=== PATIENT | female | born 1985 | race Caucasian/White ===

== ENCOUNTER → 2018-04-15 | Emergency (ER) | payer OTHER ==
[~2018-04-15] VITALS: Ht 170.1 cm; Wt 61.2 kg
[~2018-04-15] MED LIST: AMOXICILLIN500 MG PO; ATARAX,VISTARIL50 MG PO; ATARAX25 MG PO; ATIVAN1 MG PO; BACTRIM DS 8001 TA1 PO; BIRTH CONTROL1 EAC1; CARBIDOPA/LEVOD1 TA1 PO; CELEXA20 MG PO; CIPROFLOXACIN500 MG PO; DAYPRO600 M1 PO; KEFLEX500 MG PO; MOTRIN800 MG PO; NAPROSYN500 MG PO; PERCOCET 325 MG1 TA6; ROBAXIN750 MG PO; TRAMADOL HCL50 MG PO; ZOFRAN 4 MG ED2 TAB PO; ZYRTEC10 MG PO
== END ==
LOC: ED 13:34
DX: F11.10 Opioid abuse, uncomplicated (principal); Z53.21 Procedure and treatment not carried out due to patient leaving prior to being seen by health care provider

== ENCOUNTER 2019-02-25 20:29 | Emergency (ER) | payer OTHER ==
[~2019-02-25] VITALS: Ht 172.7 cm; Wt 63.5 kg
[2019-02-25 21:25] LABS: BILIRUBIN NEGATIVE (NEGATIVE); BLOOD 3+ (NEGATIVE); CLARITY SL CLOUDY (CLEAR); COLOR YELLOW (YELLOW); GLUCOSE NEGATIVE (NEGATIVE); KETONE NEGATIVE (NEGATIVE); LEUKO ESTERASE 3+ (NEGATIVE); NITRITE POSITIVE (NEGATIVE); UROBILINOGEN 0.2 E.U./dl (0.2-1.0)
[2019-02-25 21:32] LABS: BACTERIA 2+; EPITHELIAL CELLS TNTC; WBC TNTC wbc/hpf (0-5)
[2019-02-25 21:51] LABS: BASO # 0.1 10*3/uL (0.0-0.1); BASO % 0.4 % (0.0-1.0); EOS % 0.1 % (1.0-4.0); HEMATOCRIT 38.1 % (37.0-47.0); HEMOGLOBIN 12.6 g/dl (12.0-16.0); LYMPH % 36.8 % (27.0-41.0); MEAN CELL VOLUME 93.2 fl (81.0-99.0); MEAN CORPUSCULAR HGB 30.8 pg (27.0-31.0); MEAN CORPUSCULAR HGB CONC 33.1 g/dl (33.0-37.0); MONO # 1.3 10*3/uL (0.1-1.0); MONO % 9.9 % (3.0-9.0); NEUT # 7.1 10*3/uL (2.3-7.9); NEUT % 52.4 % (47.0-73.0); PLATELET COUNT AUTOMATED 251 10*3/uL (130-400); RED BLOOD COUNT 4.09 10*6/uL (4.10-5.10); RED CELL DISTRI WIDTH 14.4 % (0-14.5); WHITE BLOOD COUNT 13.6 10*3/uL (4.8-10.8)
[2019-02-25 22:06] LABS: ALBUMIN 3.1 gm/dl (3.1-4.5); ALKALINE PHOSPHATASE 89 U/L (45-117); BUN 8 mg/dl (7-24); CHLORIDE 97 mmol/L (98-107); CREATININE 0.66 mg/dL (0.55-1.02); LIPASE 46 U/L (73-393); POTASSIUM 3.5 mmol/L (3.5-5.1); SGOT/AST 7 IU/L (3-35); SGPT/ALT 15 U/L (12-78); SODIUM 130 mmol/L (136-145); TOTAL PROTEIN 7.3 gm/dL (6.4-8.2)
[2019-02-26] MEDS ORDERED: FLOMAX0.4 MG PO (00:31)
[2019-02-26] MEDS ORDERED: MACROBID100 M1 PO (00:31)
== END 2019-02-26 01:28 | disposition home or self-care (01) ==
LOC: ED 20:29
PROVIDERS: Nurse Practitioner Family
DX: N39.0 Urinary tract infection, site not specified (principal); N13.2 Hydronephrosis with renal and ureteral calculous obstruction; A59.9 Trichomoniasis, unspecified; F17.200 Nicotine dependence, unspecified, uncomplicated; Z98.51 Tubal ligation status

== ENCOUNTER 2020-02-10 18:27 | Inpatient (IN) | payer OTHER ==
[~2020-02-10] VITALS: Ht 172.7 cm; Wt 70.5 kg
[~2020-02-10 18:27] MED LIST changes: +FLOMAX0.4 MG PO; +MACROBID100 M1 PO
[2020-02-10 18:32] VITALS: BP 122/87
[2020-02-10] MEDS ORDERED: Bactroban Oint22 GM T (18:47)
[2020-02-10] MEDS ORDERED: SULFAMETHOXAZOLE-TMP PO (18:48)
--- NOTE | 2020-02-10 18:56 | NUR ---
THE DOPPLER WAS USED AND THE LEFT PEDAL PULSE WAS FOUND
--- NOTE | 2020-02-10 19:34 | NUR ---
IV ACCESS HAS NOT BEEN OBTAINED. TWO NURSE HAVE TRIED.
[2020-02-10 19:36] LABS: BASO % 0.2 % (0.0-1.0); EOS # 0.1 10*3/uL (0.0-0.4); EOS % 0.8 % (1.0-4.0); HEMATOCRIT 37.8 % (37.0-47.0); LYMPH # 3.2 10*3/uL (1.3-4.4); MEAN CELL VOLUME 96.4 fl (81.0-99.0); MEAN CORPUSCULAR HGB 31.6 pg (27.0-31.0); MEAN CORPUSCULAR HGB CONC 32.8 g/dl (33.0-37.0); MEAN PLATELET VOLUME 10.1 fl (9.6-12.3); MONO # 0.9 10*3/uL (0.1-1.0); MONO % 7.1 % (3.0-9.0); NEUT # 8.1 10*3/uL (2.3-7.9); NEUT % 65.6 % (47.0-73.0); PLATELET COUNT AUTOMATED 288 10*3/uL (130-400); RED BLOOD COUNT 3.92 10*6/uL (4.10-5.10); RED CELL DISTRI WIDTH 12.8 % (0-14.5); WHITE BLOOD COUNT 12.3 10*3/uL (4.8-10.8)
[2020-02-10 19:51] LABS: ACT PARTIAL THROMBO TIME 29.2 SECONDS (20.0-32.1)
[2020-02-10 19:54] LABS: ALKALINE PHOSPHATASE 85 U/L (45-117); BUN 7 mg/dl (7-24); CHLORIDE 106 mmol/L (98-107); CREATININE 0.61 mg/dL (0.55-1.02); LIPASE 43 U/L (73-393); POTASSIUM 3.9 mmol/L (3.5-5.1); SGOT/AST 18 IU/L (3-35); SGPT/ALT 23 U/L (12-78); SODIUM 134 mmol/L (136-145); TOTAL PROTEIN 7.4 gm/dL (6.4-8.2)
--- NOTE | 2020-02-10 19:59 | NUR ---
AT THIS TIME ZOSYN AND FLUIDS ARE INFUSING. VANC IS HOLD WAITING FOR ADDITIONAL IV ACCESS SITE
--- NOTE | 2020-02-10 21:20 | NUR ---
DR HOFF CONSULTED IN ER.
[2020-02-10 21:35] VITALS: BP 103/73
--- NOTE | 2020-02-10 21:35 | NUR ---
Time: 2134 A 34 year old FEMALE admitted to under services of FLORIN TAVAREZ DO. Pt. arrived via wheel chair from ER. Chief complaint: EXTREMITY NUMBNESS, ABSCESS TO BACK. SUSANA BENITO
--- NOTE | 2020-02-10 22:00 | NUR ---
SPOKE WITH DR GARCIA REGARDING NEED FOR WOUND ORDERS, PT REQUEST FOR NICOTINE PATCH, AND IBUPROFEN TO CONTROL PAIN FROM ABSCESS. STATES THAT IT "HELPED THE MOST AT HOME". NOTIFIED OF LEFT LEG NUMBNESS, COOL TO TOUCH. PULSE PALPABLE AND REGULAR IN THE FOOT. AWAITING NEW ORDERS.
--- NOTE | 2020-02-10 22:12 | NUR ---
MED REC UP TO DATE.
--- NOTE | 2020-02-10 22:15 | NUR ---
DR GARCIA NOTIFIED OF POTENTIAL NEED FOR NEW IV ACCESS. PT HAS A HISTORY OF IV DRUG USE, AND WAS STUCK MULTIPLE TIMES IN ER. 24 GUAGE WAS PLACED IN THE LEFT WRIST. DR GARCIA STATES HE DOESN'T PLAN TO PLACE AN IJ IN THE PATIENT BECAUSE LAST TIME SHE WAS HERE SHE LEFT AMA SHORTLY AFTER WITH THE LINE WAS PLACED.
--- NOTE | 2020-02-10 22:25 | NUR ---
MOTRIN ADMINISTERED FOR PT C/O 12/14 PAIN TO ABSCESS AT THE UPPER PORTION OF BACK/NAPE OF NECK. AREA SWOLLEN, RED, TENDER TO TOUCH. WILL CONTINUE TO MONITOR AND REASSESS.
--- NOTE | 2020-02-10 22:25 | NUR ---
NICOTINE PATCH APPLIED TO RIGHT UPPER ARM.
--- NOTE | 2020-02-10 23:20 | NUR ---
PT STATES MOTRIN WAS EFFECTIVE. WILL CONTINUE TO MONITOR.
[2020-02-11] VITALS: BP 104/80
[2020-02-11 06:51] LABS: BUN 7 mg/dl (7-24); CHLORIDE 106 mmol/L (98-107); CREATININE 0.63 mg/dL (0.55-1.02); POTASSIUM 3.8 mmol/L (3.5-5.1); SODIUM 138 mmol/L (136-145)
[2020-02-11 06:54] LABS: BASO % 0.3 % (0.0-1.0); EOS # 0.1 10*3/uL (0.0-0.4); HEMATOCRIT 36.2 % (37.0-47.0); LYMPH # 2.9 10*3/uL (1.3-4.4); LYMPH % 27.3 % (27.0-41.0); MEAN CELL VOLUME 96.8 fl (81.0-99.0); MEAN CORPUSCULAR HGB 30.7 pg (27.0-31.0); MEAN CORPUSCULAR HGB CONC 31.8 g/dl (33.0-37.0); MEAN PLATELET VOLUME 10.5 fl (9.6-12.3); MONO # 0.8 10*3/uL (0.1-1.0); MONO % 7.2 % (3.0-9.0); NEUT # 6.7 10*3/uL (2.3-7.9); PLATELET COUNT AUTOMATED 268 10*3/uL (130-400); RED BLOOD COUNT 3.74 10*6/uL (4.10-5.10); RED CELL DISTRI WIDTH 12.8 % (0-14.5); WHITE BLOOD COUNT 10.5 10*3/uL (4.8-10.8)
[2020-02-11 08:00] VITALS: BP 97/70
--- NOTE | 2020-02-11 08:35 | NUR ---
MEDICATED WITH PRN MOTRIN PER ORDER AND REQUEST.
--- NOTE | 2020-02-11 09:00 | NUR ---
MOTRIN HELPED A LITTLE.
--- NOTE | 2020-02-11 11:20 | NUR ---
UNHOOKED IVF'S SO PATIENT COULD SHOWER. WRAPPED HEPLOCK.
--- NOTE | 2020-02-11 11:50 | NUR ---
IN TO CHECK ON PATIENT TO SEE IF DONE SHOWERING, PATIENT HAS NOT EVEN SHOWERED WAITING ON SISTER TO BRING IN CLEAN UNDERWARE.
--- NOTE | 2020-02-11 11:56 | NUR ---
DR. HOFF HAS ROUNDED AND PUT NEW ORDERS IN FOR 1&D IN AM 02/11.
[2020-02-11 12:00] VITALS: BP 110/69
--- NOTE | 2020-02-11 13:30 | NUR ---
PATIENT SISTER BROUGHT IN CLOTHES. PHYSICAL THERAPY TECHNICIAN FOUND IN SOCKS REMOVED AND LOCKED IN WALL A RON.
--- NOTE | 2020-02-11 14:20 | NUR ---
Went in room to give iv antibiotics and patient stated she is leaving AMA. Patient educated to the need for antibiotics and I&D in morning patient states she will go somewhere else she came in for her foot.
--- NOTE | 2020-02-11 14:45 | NUR ---
PHYSICIAN SURGEON, DR. HACKETT, AND DR. HOFF AWARE ATIENT LEFT.
== END 2020-02-11 15:05 | disposition left against medical advice (07) | DRG 720 ==
LOC: ED 18:27 → EDHOLD 20:37 → 4E 21:01
PROVIDERS: Internal Medicine; Nurse Practitioner Family; ADMIT Internal Medicine; ATTEND Internal Medicine
DX: A41.9 Sepsis, unspecified organism (principal); E44.0 Moderate protein-calorie malnutrition; L03.312 Cellulitis of back [any part except buttock and flank]; E87.1 Hypo-osmolality and hyponatremia; L02.212 Cutaneous abscess of back [any part, except buttock and flank]; F41.9 Anxiety disorder, unspecified; F32.9 Major depressive disorder, single episode, unspecified; R79.82 Elevated C-reactive protein (CRP); Z53.29 Procedure and treatment not carried out because of patient's decision for other reasons; Z98.51 Tubal ligation status; Z83.3 Family history of diabetes mellitus; Z82.49 Family history of ischemic heart disease and other diseases of the circulatory system; Z80.0 Family history of malignant neoplasm of digestive organs; Z79.899 Other long term (current) drug therapy; Z68.23 Body mass index [BMI] 23.0-23.9, adult

== ENCOUNTER 2020-04-01 15:46 | Inpatient (IN) | payer OTHER ==
[~2020-04-01] VITALS: Ht 172.7 cm; Wt 63.5 kg
[~2020-04-01 15:46] MED LIST changes: +Bactroban Oint22 GM T; +SULFAMETHOXAZOLE-TMP PO
[2020-04-01 15:53] VITALS: BP 131/83
[2020-04-01 16:29] LABS: BASO % 0.4 % (0.0-1.0); EOS # 0.1 10*3/uL (0.0-0.4); HEMATOCRIT 43.7 % (37.0-47.0); LYMPH # 3.3 10*3/uL (1.3-4.4); LYMPH % 40.1 % (27.0-41.0); MEAN CELL VOLUME 95.8 fl (81.0-99.0); MEAN CORPUSCULAR HGB 30.9 pg (27.0-31.0); MEAN CORPUSCULAR HGB CONC 32.3 g/dl (33.0-37.0); MEAN PLATELET VOLUME 10.8 fl (9.6-12.3); MONO # 0.5 10*3/uL (0.1-1.0); MONO % 6.1 % (3.0-9.0); NEUT # 4.3 10*3/uL (2.3-7.9); NEUT % 52.3 % (47.0-73.0); PLATELET COUNT AUTOMATED 242 10*3/uL (130-400); RED BLOOD COUNT 4.56 10*6/uL (4.10-5.10); RED CELL DISTRI WIDTH 13.3 % (0-14.5); WHITE BLOOD COUNT 8.2 10*3/uL (4.8-10.8)
[2020-04-01 16:30] LABS: BILIRUBIN Negative (Negative); BLOOD Negative (Negative); CLARITY Cloudy (Clear); COLOR Yellow (Yellow); GLUCOSE Negative (Negative); KETONE Negative (Negative); LEUKO ESTERASE 1+ (Negative); NITRITE Negative (Negative); PH 5.5 (4.5-8.0); UROBILINOGEN 0.2 E.U./dl (0.0-1.0)
[2020-04-01 16:38] LABS: URINE AMPHETAMINES > 1000 (1000ng/ml); URINE BARBITURATES < 200 (200ng/ml); URINE BENZODIAZEPINES < 200 (200ng/ml); URINE CANNABINOIDS (THC) < 50 (50ng/ml); URINE COCAINE < 300 (300ng/ml); URINE METHADONE < 300 (300ng/ml); URINE OPIATES < 300 (300ng/ml)
[2020-04-01 16:39] LABS: URINE PHENCYCLIDINE < 25 (25ng/ml)
[2020-04-01 16:41] LABS: BACTERIA TRACE; EPITHELIAL CELLS 0-2; RBC 0-2 rbc/hpf (0-2); WBC 0-2 wbc/hpf (0-5)
[2020-04-01 16:44] LABS: ALBUMIN 3.2 gm/dl (3.1-4.5); ALKALINE PHOSPHATASE 68 U/L (45-117); BUN 11 mg/dl (7-24); CHLORIDE 107 mmol/L (98-107); CREATININE 0.57 mg/dL (0.55-1.02); POTASSIUM 3.8 mmol/L (3.5-5.1); SGOT/AST 30 IU/L (3-35); SGPT/ALT 30 U/L (12-78); SODIUM 139 mmol/L (136-145); TOTAL PROTEIN 7.3 gm/dL (6.4-8.2)
[2020-04-01 16:46] LABS: ETHYL ALCOHOL < 3.0 mg/dl (<3)
== END 2020-04-01 19:00 | disposition left against medical advice (07) | DRG 770 ==
LOC: ED 15:46 → EDHOLD 16:16 → 4E 18:15
PROVIDERS: Nurse Practitioner Family; ADMIT Student in an Organized Health Care Education/Training Program; ATTEND Student in an Organized Health Care Education/Training Program
DX: F11.23 Opioid dependence with withdrawal (principal); F17.210 Nicotine dependence, cigarettes, uncomplicated; F41.9 Anxiety disorder, unspecified; F15.10 Other stimulant abuse, uncomplicated; F32.9 Major depressive disorder, single episode, unspecified; Z82.49 Family history of ischemic heart disease and other diseases of the circulatory system; Z98.51 Tubal ligation status; Z79.899 Other long term (current) drug therapy; Z83.3 Family history of diabetes mellitus; Z80.0 Family history of malignant neoplasm of digestive organs; Z71.6 Tobacco abuse counseling; Z53.29 Procedure and treatment not carried out because of patient's decision for other reasons

== ENCOUNTER 2021-02-01 16:09 | Emergency (ER) | payer OTHER ==
[~2021-02-01] VITALS: Wt 65.8 kg
[2021-02-01 17:38] LABS: URINE AMPHETAMINES < 1000 (1000ng/ml); URINE BARBITURATES < 200 (200ng/ml); URINE BENZODIAZEPINES < 200 (200ng/ml); URINE CANNABINOIDS (THC) < 50 (50ng/ml); URINE COCAINE < 300 (300ng/ml); URINE METHADONE < 300 (300ng/ml); URINE OPIATES < 300 (300ng/ml); URINE PHENCYCLIDINE < 25 (25ng/ml)
== END 2021-02-01 17:28 | disposition home or self-care (01) ==
LOC: ED 16:09
PROVIDERS: Emergency Medicine
DX: R45.1 Restlessness and agitation (principal); F10.129 Alcohol abuse with intoxication, unspecified; Y90.9 Presence of alcohol in blood, level not specified

== ENCOUNTER 2021-10-16 09:57 | Inpatient (IN) | payer OTHER ==
[~2021-10-16] VITALS: Ht 172.7 cm; Wt 73.3 kg
[2021-10-16 10:06] VITALS: BP 112/82
[2021-10-16 10:31] LABS: BASO % 0.6 % (0.0-1.0); EOS # 0.1 10*3/uL (0.0-0.4); EOS % 1.2 % (1.0-4.0); HEMATOCRIT 40.5 % (37.0-47.0); LYMPH # 2.8 10*3/uL (1.3-4.4); LYMPH % 40.8 % (27.0-41.0); MEAN CELL VOLUME 88.4 fl (81.0-99.0); MEAN CORPUSCULAR HGB CONC 32.8 g/dl (33.0-37.0); MEAN PLATELET VOLUME 9.8 fl (9.6-12.3); MONO # 0.6 10*3/uL (0.1-1.0); MONO % 8.1 % (3.0-9.0); NEUT # 3.4 10*3/uL (2.3-7.9); NEUT % 49.2 % (47.0-73.0); PLATELET COUNT AUTOMATED 242 10*3/uL (130-400); RED BLOOD COUNT 4.58 10*6/uL (4.10-5.10); RED CELL DISTRI WIDTH 13.3 % (0-14.5); WHITE BLOOD COUNT 6.8 10*3/uL (4.8-10.8)
[2021-10-16 10:51] LABS: ALKALINE PHOSPHATASE 108 U/L (45-117); BUN 11 mg/dl (7-24); CHLORIDE 104 mmol/L (98-107); POTASSIUM 3.7 mmol/L (3.5-5.1); SGOT/AST 39 IU/L (3-35); SGPT/ALT 45 U/L (12-78); SODIUM 138 mmol/L (136-145); TOTAL PROTEIN 6.8 gm/dL (6.4-8.2)
[2021-10-16 10:52] LABS: ACETAMINOPHEN (TYLENOL) < 5.0 ug/ml (10-30); ETHYL ALCOHOL < 3.0 mg/dl (<3)
[2021-10-16 11:21] LABS: BILIRUBIN 1+ (Negative); BLOOD Trace-Lysed (Negative); CLARITY Turbid (Clear); COLOR Dark Yellow (Yellow); GLUCOSE Negative (Negative); KETONE Negative (Negative); LEUKO ESTERASE 2+ (Negative); NITRITE Negative (Negative); SPECIFIC GRAVITY >= 1.030 (1.001-1.030)
[2021-10-16 11:28] LABS: BACTERIA 4+; EPITHELIAL CELLS TNTC; WBC TNTC wbc/hpf (0-5)
[2021-10-16 11:30] LABS: URINE AMPHETAMINES > 1000 (1000ng/ml); URINE BARBITURATES < 200 (200ng/ml); URINE BENZODIAZEPINES < 200 (200ng/ml); URINE CANNABINOIDS (THC) < 50 (50ng/ml); URINE COCAINE < 300 (300ng/ml); URINE METHADONE < 300 (300ng/ml); URINE OPIATES < 300 (300ng/ml)
[2021-10-16 11:31] LABS: URINE PHENCYCLIDINE < 25 (25ng/ml)
[2021-10-16 12:40] VITALS: BP 114/74
[2021-10-16 16:00] VITALS: BP 112/56
[2021-10-16 20:00] VITALS: BP 102/71
[2021-10-17] VITALS: BP 111/79
[2021-10-17 04:00] VITALS: BP 108/68
[2021-10-17 08:00] VITALS: BP 104/65
== END 2021-10-17 11:04 | disposition left against medical advice (07) | DRG 770 ==
LOC: ED 09:57 → 5E 11:08 → EDHOLD 11:08 → 5E 12:17
PROVIDERS: Internal Medicine; ADMIT Internal Medicine; ATTEND Internal Medicine
DX: F11.23 Opioid dependence with withdrawal (principal); F15.10 Other stimulant abuse, uncomplicated; E44.0 Moderate protein-calorie malnutrition; F17.210 Nicotine dependence, cigarettes, uncomplicated; R74.01 Elevation of levels of liver transaminase levels; Z53.29 Procedure and treatment not carried out because of patient's decision for other reasons; F41.9 Anxiety disorder, unspecified; A59.01 Trichomonal vulvovaginitis; Z68.24 Body mass index [BMI] 24.0-24.9, adult; Z83.3 Family history of diabetes mellitus; Z82.49 Family history of ischemic heart disease and other diseases of the circulatory system; Z80.0 Family history of malignant neoplasm of digestive organs

== ENCOUNTER 2022-10-24 05:50 | Emergency (ER) | payer OTHER ==
[~2022-10-24] VITALS: Ht 172.7 cm; Wt 64.6 kg
[2022-10-24] MEDS ORDERED: BUPRENORPHINE-1 EAC2 SL (06:12)
[2022-10-24] MEDS ORDERED: ONDANSETRON4 MG SL (07:42)
[2022-10-24] MEDS ORDERED: REQUIP2 MG PO (07:42)
== END 2022-10-24 07:59 | disposition home or self-care (01) ==
LOC: ED 05:50
DX: F19.10 Other psychoactive substance abuse, uncomplicated (principal); F15.10 Other stimulant abuse, uncomplicated; F41.9 Anxiety disorder, unspecified; F32.A Depression, unspecified; Z98.51 Tubal ligation status; Z98.890 Other specified postprocedural states; F11.10 Opioid abuse, uncomplicated; F17.200 Nicotine dependence, unspecified, uncomplicated

== ENCOUNTER → 2022-12-03 | Outpatient (CLI) | payer OTHER ==
[~2022-12-03] MED LIST changes: +BUPRENORPHINE-1 EAC2 SL; +ONDANSETRON4 MG SL; +REQUIP2 MG PO
[2022-12-03 15:46] LABS: BILIRUBIN Negative (Negative); BLOOD Trace-Intact (Negative); CLARITY Clear (Clear); COLOR Yellow (Yellow); GLUCOSE Negative (Negative); HEMATOCRIT 42.5 % (37.0-47.0); KETONE Negative (Negative); LEUKO ESTERASE Negative (Negative); MEAN CELL VOLUME 93.4 fl (81.0-99.0); MEAN CORPUSCULAR HGB 30.5 pg (27.0-31.0); MEAN CORPUSCULAR HGB CONC 32.7 g/dl (33.0-37.0); MEAN PLATELET VOLUME 10.8 fl (9.6-12.3); NITRITE Negative (Negative); PLATELET COUNT AUTOMATED 215 10*3/uL (130-400); RED BLOOD COUNT 4.55 10*6/uL (4.10-5.10); RED CELL DISTRI WIDTH 14.3 % (0-14.5); RETICULOCYTE % 1.38 % (0.50-2.50); SPECIFIC GRAVITY <= 1.005 (1.001-1.030); UROBILINOGEN 0.2 E.U./dl (0.0-1.0); WHITE BLOOD COUNT 5.9 10*3/uL (4.8-10.8)
[2022-12-03 16:13] LABS: ATYPICAL LYMPHS 5 % (0-0); BURR CELLS FEW; OVALOCYTES FEW; PLATELET SUFFICIENCY NORMAL (NORMAL); RBC 0-2 rbc/hpf (0-2); ROULEAUX SLIGHT; TOTAL CELLS COUNTED 100 #CELLS
[2022-12-03 16:14] LABS: BACTERIA 1+
[2022-12-03 16:21] LABS: ALKALINE PHOSPHATASE 101 U/L (46-116); BUN 9 mg/dl (9-23); CHLORIDE 103 mmol/L (98-107); CHOLESTEROL 173 mg/dL (<200); GAMMA GLUTAMYL TRANSPEPTIDASE 35 U/L (0-73); LDL CHOLESTEROL 69 mg/dL (9-159); POTASSIUM 3.8 mmol/L (3.4-5.1); SGPT/ALT 41 U/L (10-49); THYROID STIM HORMONE (HS) 0.757 uIU/ml (0.550-4.780); THYROXINE (T4) TOTAL 14.1 ug/dl (4.5-10.9); TOTAL PROTEIN 7.1 gm/dL (6.0-8.0); TRIGLYCERIDES 117 mg/dl (<150); URIC ACID 4.5 mg/dL (3.1-7.8)
[2022-12-03 16:42] LABS: VITAMIN D, 25-HYDROXY 33.4 ng/mL (30-100)
[2022-12-04 06:08] LABS: TOTAL PROTEIN, SERUM 6.8 g/dL (6.0-8.5)
[2022-12-04 07:07] LABS: HBSAG Negative (Negative); HEP B CORE AB, IGM Negative (Negative)
[2022-12-04 12:07] LABS: A/G RATIO 1.3 (0.7-1.7); ALBUMIN 3.8 g/dL (2.9-4.4); ALPHA-1-GLOBULIN 0.3 g/dL (0.0-0.4); ALPHA-2-GLOBULIN 0.7 g/dL (0.4-1.0); BETA GLOBULIN 0.9 g/dL (0.7-1.3); GAMMA GLOBULIN 1.2 g/dL (0.4-1.8); M-SPIKE Not Observed g/dL (Not Observed)
[2022-12-04 13:07] LABS: ANTI-DSDNA ANTIBODIES 5 IU/mL (0-9)
[2022-12-07 12:06] LABS: HEPATITIS C ANTIBODY Reactive (Non Reactive)
== END | disposition home or self-care (01) ==
LOC: LAB 15:16
PROVIDERS: ATTEND Family Medicine
DX: M47.816 Spondylosis without myelopathy or radiculopathy, lumbar region (principal); M47.812 Spondylosis without myelopathy or radiculopathy, cervical region; M48.02 Spinal stenosis, cervical region; R53.83 Other fatigue; R79.89 Other specified abnormal findings of blood chemistry; E78.5 Hyperlipidemia, unspecified; E55.9 Vitamin D deficiency, unspecified; R74.8 Abnormal levels of other serum enzymes; R06.02 Shortness of breath

== ENCOUNTER 2023-12-19 15:12 | Emergency (ER) | payer OTHER ==
[~2023-12-19] VITALS: Wt 68.0 kg
[2023-12-19] MEDS ORDERED: Rabies Vaccine 1 ML VIAL IM ONE (16:45)
[2023-12-19] MEDS ORDERED: Rabies Immune Globulin 300 UNIT/2 ML VIAL IM ONE (16:45)
[2023-12-19] MEDS ORDERED: Amoxicillin/Clavulanate Pota 875 MG TAB PO ONE (16:45)
[2023-12-19] MEDS ORDERED: Acetaminophen/Hydrocodone 5 MG/325 MG TABLET PO ONE (16:45)
[2023-12-19] MEDS ORDERED: Tdap Vaccine 0.5 ML SYR (Adult Vaccine) IM ONE (16:45)
[2023-12-19] MEDS ORDERED: Bacitracin Zinc 14 GM TUBE T ONE (16:45)
[2023-12-19] MEDS ORDERED: AMOX-CLAV 875-1 EACH PO (18:04)
[2023-12-19] MEDS ORDERED: NAPROSYN500 MG PO (18:04)
== END 2023-12-19 17:36 | disposition home or self-care (01) ==
LOC: ED 15:12
DX: S61.431A Puncture wound without foreign body of right hand, initial encounter (principal); S60.512A Abrasion of left hand, initial encounter; F15.10 Other stimulant abuse, uncomplicated; F41.9 Anxiety disorder, unspecified; F32.A Depression, unspecified; F19.10 Other psychoactive substance abuse, uncomplicated; F17.200 Nicotine dependence, unspecified, uncomplicated; Z98.51 Tubal ligation status; Z98.890 Other specified postprocedural states; W54.0XXA Bitten by dog, initial encounter; Y93.01 Activity, walking, marching and hiking; Y92.89 Other specified places as the place of occurrence of the external cause; Y99.8 Other external cause status

== ENCOUNTER → 2024-05-29 | Day surgery (SDC) | payer OTHER ==
[~2024-05-29] VITALS: Ht 172.7 cm; Wt 63.5 kg
[~2024-05-29] MED LIST changes: +ACETIC ACID 0.25% T ONE; +AMOX-CLAV 875-1 EACH PO; +EPINEPHrine/Lidocaine Hydroc 20 ML VIAL SC ONE; +FERRIC SUBSULFATE 8 ML VIAL ONE; +Lactated Ringer's Solution 1,000 ML IV ONE; +Lidocaine Hydrochloride 5 ML VIAL IV ONE; +Midazolam Hydrochloride 2 MG/2 ML VIAL IV ONE; +Ondansetron Hydrochloride 4 MG/2 ML VIAL IV ONE; +PROPOFOL 200 MG/20 ML VIAL IV ONE; +fentaNYL CITRATE 100 MCG/2 ML VIAL IV ONE
[2024-05-29 07:00] VITALS: BP 113/69
[2024-05-29 08:09] VITALS: BP 120/83
[2024-05-29 08:24] VITALS: BP 110/84
[2024-05-29 08:39] VITALS: BP 104/75
== END | disposition home or self-care (01) ==
LOC: SDC 05-25 08:00
PROVIDERS: ATTEND Obstetrics & Gynecology
DX: N87.1 Moderate cervical dysplasia (principal); F41.9 Anxiety disorder, unspecified; F32.A Depression, unspecified; Z98.51 Tubal ligation status; Z79.899 Other long term (current) drug therapy

== ENCOUNTER 2024-08-17 19:24 | Emergency (ER) | payer OTHER ==
[~2024-08-17] VITALS: Ht 172.7 cm; Wt 59.0 kg
[~2024-08-17 19:24] MED LIST changes: -ACETIC ACID 0.25% T ONE; -EPINEPHrine/Lidocaine Hydroc 20 ML VIAL SC ONE; -FERRIC SUBSULFATE 8 ML VIAL ONE; -Lactated Ringer's Solution 1,000 ML IV ONE; -Lidocaine Hydrochloride 5 ML VIAL IV ONE; -Midazolam Hydrochloride 2 MG/2 ML VIAL IV ONE; -Ondansetron Hydrochloride 4 MG/2 ML VIAL IV ONE; -PROPOFOL 200 MG/20 ML VIAL IV ONE; -fentaNYL CITRATE 100 MCG/2 ML VIAL IV ONE
[2024-08-17 19:55] LABS: BILIRUBIN 1+ (Negative); BLOOD Trace-Lysed (Negative); CLARITY Cloudy (Clear); COLOR Orange (Yellow); GLUCOSE Negative (Negative); KETONE Negative (Negative); LEUKO ESTERASE 2+ (Negative); NITRITE Positive (Negative); PH 5.5 (4.5-8.0); SPECIFIC GRAVITY 1.015 (1.001-1.030)
[2024-08-17 20:11] LABS: BASO % 0.3 % (0.0-1.0); EOS % 0.1 % (1.0-4.0); MEAN CELL VOLUME 91.6 fl (81.0-99.0); MEAN CORPUSCULAR HGB 29.9 pg (27.0-31.0); MEAN CORPUSCULAR HGB CONC 32.7 g/dl (33.0-37.0); MEAN PLATELET VOLUME 10.7 fl (9.6-12.3); MONO # 0.8 10*3/uL (0.1-1.0); MONO % 7.1 % (3.0-9.0); NEUT # 8.9 10*3/uL (2.3-7.9); NEUT % 77.5 % (47.0-73.0); PLATELET COUNT AUTOMATED 224 10*3/uL (130-400); RED BLOOD COUNT 4.91 10*6/uL (4.10-5.10); RED CELL DISTRI WIDTH 12.6 % (0-14.5); WHITE BLOOD COUNT 11.5 10*3/uL (4.8-10.8)
[2024-08-17 20:12] LABS: BACTERIA 3+
[2024-08-17 20:29] LABS: BUN 12 mg/dl (9-23); CHLORIDE 98 mmol/L (98-107); POTASSIUM 3.5 mmol/L (3.4-5.1)
[2024-08-17] MEDS ORDERED: SEPTDS PO (20:47)
[2024-08-17] MEDS ORDERED: Sulfamethoxazole/Trimethopri 1 TAB TAB PO ONE (20:50)
== END 2024-08-17 21:05 | disposition home or self-care (01) ==
LOC: ED 19:24
PROVIDERS: Physician Assistant Medical
DX: N39.0 Urinary tract infection, site not specified (principal); F41.9 Anxiety disorder, unspecified; F32.A Depression, unspecified; F17.200 Nicotine dependence, unspecified, uncomplicated; Z79.899 Other long term (current) drug therapy; Z98.51 Tubal ligation status; Z87.442 Personal history of urinary calculi

== ENCOUNTER 2024-09-22 18:38 | Emergency (ER) | payer OTHER ==
[~2024-09-22] VITALS: Ht 172.7 cm; Wt 54.4 kg
[~2024-09-22 18:38] MED LIST changes: +SEPTDS PO
[2024-09-22] MEDS ORDERED: PREDNISONE20 M1 PO (18:53)
[2024-09-22] MEDS ORDERED: methylPREDNISolone sod succ 125 MG VIAL IM ONE (18:55)
== END 2024-09-22 19:15 | disposition home or self-care (01) ==
LOC: ED 18:38
DX: L23.7 Allergic contact dermatitis due to plants, except food (principal); F41.9 Anxiety disorder, unspecified; F32.A Depression, unspecified; Z79.899 Other long term (current) drug therapy